=== PATIENT | female | born 1940 | race Caucasian/White ===

== ENCOUNTER 2017-09-25 08:00 | Inpatient (IN) ==
[2017-09-20 17:20] LABS: Blood Urea Nitrogen 16 mg/dl (8-23)
[~2017-09-25 08:00] MED LIST: ACETAMINOPHEN 500 MG TABLET PO SCH; CELECOXIB 200 MG CAPSULE PO SCH; KETOROLAC 30 MG, ROPIVACAINE HCL/PF 49.5 ML, EPINEPHrine 0.5 MG, 0.9 % SODIUM CHLORIDE ... IJ SCH; PREGABALIN 75 MG CAPSULE PO SCH; ceFAZolin 1 GM VIAL IV SCH
[2017-09-25] MEDS ORDERED: GENTAMICIN SULFATE 800 MG/20 ML VIAL IR ONE (10:07)
[2017-09-25] MEDS ORDERED: PHENYLEPHRINE 10 MG/ML VIAL IV ONE (10:30)
[2017-09-25] MEDS ORDERED: KETAMINE 100 MG/ML ML IV ONE (10:30)
[2017-09-25] MEDS ORDERED: TRANEXAMIC ACID 1,000 MG/10 ML VIAL IV ONE (10:30)
[2017-09-25] MEDS ORDERED: ONDANSETRON 4 MG/2 ML VIAL IV ONE (10:30)
[2017-09-25] MEDS ORDERED: PROPOFOL 200 MG/20 ML VIAL IV ONE (10:30)
[2017-09-25] MEDS ORDERED: MIDAZOLAM 2 MG/2 ML VIAL IV ONE (10:30)
[2017-09-25] MEDS ORDERED: LIDOCAINE HCL/PF 100 MG/5 ML SYRINGE IV ONE (10:30)
[2017-09-25] MEDS ORDERED: EPINEPHrine 1 MG/ML AMPUL IJ ONE (10:30)
[2017-09-25] MEDS ORDERED: GLYCOPYRROLATE 0.2 MG/ML VIAL IV ONE (10:30)
[2017-09-25] MEDS ORDERED: ROPIVACAINE HCL/PF 20 ML VIAL IJ ONE (10:30)
[2017-09-25] MEDS ORDERED: METHOCARBAMOL 1,000 MG/10 ML VIAL IV PRN (11:38)
[2017-09-25] MEDS ORDERED: MEPERIDINE 25 MG/ML SYRINGE IV PRN (11:38)
[2017-09-25] MEDS ORDERED: fentaNYL 100 MCG/2 ML VIAL IV PRN (11:38)
[2017-09-25] MEDS ORDERED: BENZOCAINE/MENTHOL 1 LOZENGE PO PRN ×2 (11:38→12:12)
[2017-09-25] MEDS ORDERED: ePHEDrine 50 MG/ML AMPUL IV PRN (11:38)
[2017-09-25] MEDS ORDERED: IPRATROPIUM/ALBUTEROL 3 ML AMPUL.NEB NEB PRN (11:38)
[2017-09-25] MEDS ORDERED: LACTATED RINGERS 1,000 ML IV SCH (11:45)
--- NOTE | 2017-09-25 12:11 | Brief Operative Note ---
Date of procedure: 09/25/17 Pre-op diagnosis: Right knee djd Post-op diagnosis: same Procedure: right tka revision from partial tka Grafts/Implants: Yes Anesthesia: GETA Complications: none Complications Description: 09/25/17 12:11 none Surgeon: Steve Lindsey Demographic Analyst: Paul Pham Estimated blood loss (cc): 50 Tourniquet Time (Minutes): 55 Specimens Removed/Pathology: none sent Condition: stable Disposition: PACU
[2017-09-25] MEDS ORDERED: BISACODYL 10 MG SUPP.RECT PR PRN (12:12)
[2017-09-25] MEDS ORDERED: FLEETS ADULT ENEMA PR PRN (12:12)
[2017-09-25] MEDS ORDERED: POLYETHYLENE GLYCOL 3350 17 GM PACKET PO PRN (12:12)
[2017-09-25] MEDS ORDERED: HYDROmorphone 2 MG/ML SYRINGE IV PRN (12:12)
[2017-09-25] MEDS ORDERED: ACETAMINOPHEN 325 MG TABLET PO PRN (12:12)
[2017-09-25] MEDS ORDERED: ONDANSETRON 4 MG/2 ML VIAL IV PRN (12:12)
[2017-09-25] MEDS ORDERED: TRANEXAMIC ACID 1,000 MG/10 ML VIAL IV SCH (12:12)
--- NOTE | 2017-09-25 12:31 | Operative Note ---
DATE OF OPERATION: 09/25/2017 PREOPERATIVE DIAGNOSIS: Right knee degenerative arthritis. POSTOPERATIVE DIAGNOSIS: Right knee degenerative arthritis. PROCEDURE: Right partial knee converted to a total knee because of patellofemoral wear. SURGEON: Steve Lindsey MD ENGLISH AS A SECOND LANGUAGE INSTRUCTOR: Paul Pham PA-C ANESTHESIA: General LMA anesthesia. COMPLICATIONS: None. TOTAL TOURNIQUET TIME: 55 minutes. DESCRIPTION OF PROCEDURE: The patient was brought to the operating room and put to sleep with general LMA anesthesia. The right leg was sterilely prepped and draped in the usual sterile fashion. A timeout was performed confirming the operative site, both by x-ray and consent form, and initials on the skin. Once these all matched, we then made a midline incision, a mid vastus approach performed. We exsanguinated the leg and inflated the tourniquet to 250 pounds of pressure. We exposed the joint and evaluated the implants. She had a partial medial knee. This was very stable throughout the range of motion. She had quite a bit of wear under the patellofemoral joint laterally. This seemed to be perfectly positioned. At this point, we proceeded with a total knee arthroplasty. The implant was removed medially using the [employer] robot. We registered the 30 points on the femur and tibia and balanced the knee once more. We then brought in the robot, made our distal femoral cut, our chamfer cuts both on the femur. Our tibial cut was then made, removing the remnants of the lateral meniscus, preserving the posterior crucial ligament. We irrigated thoroughly. We then bone grafted medially. Once this was done, we then implanted the size 3 tibial baseplate and size 3 femur with a size 13 poly and a 33 mm patellar button. All components fit very well. Excess cement was removed. We injected the soft tissues making measurements on the robot. This brought us back to 1 degree extension as well as stable in flexion and extension. We irrigated thoroughly, removed any excess cement and closed the mid vastus approach with #2 Stratafix x2 sutures. We closed the skin with 2-0 Vicryl and adhesive closure. The patient tolerated this well. The other portals were closed with 4-0 nylon. RBH:rimma Job ID: [id number] Doc ID: [id number] Steve Lindsey MD
--- NOTE | 2017-09-25 12:46 | XRay Report ---
CLINICAL INFORMATION: Postsurgical follow-up TECHNIQUE: AP and lateral right knee COMPARISON: Previous examination dated 05/19/2017 FINDINGS: Status post revision of right hemiknee arthroplasty. There are now changes of complete right knee arthroplasty. Femoral and tibial components are in anatomic positions. There is postsurgical intra-articular gas. IMPRESSION: Status post right total knee arthroplasty Interpreted and Authenticated by: Rafat Blankenship 09/25/17
[2017-09-25] MEDS: 0.45 % SODIUM CHLORIDE 1,000 ML IV SCH (13:26)
[2017-09-25] MEDS: 0.9 % SODIUM CHLORIDE 10 ML SYRINGE IV SCH ×2 (13:27→20:44)
[2017-09-25] MEDS: metFORMIN 500 MG TABLET PO SCH (16:50)
[2017-09-25] MEDS: oxyCODONE/APAP 5/325MG TABLET PO PRN ×2 (16:51→22:11)
[2017-09-25] MEDS: ceFAZolin 1 GM VIAL IV SCH (18:08)
[2017-09-25] MEDS: KETOROLAC 15 MG/ML VIAL IV SCH (18:10)
[2017-09-25] MEDS: DOCUSATE SODIUM 100 MG CAPSULE PO SCH (20:42)
[2017-09-25] MEDS: METOPROLOL TARTRATE 50 MG TABLET PO SCH (20:42)
[2017-09-25] MEDS: ASPIRIN 325 MG ENTERIC COATED TABLET PO SCH (20:42)
[2017-09-25] MEDS: Budesonide/Formoterol Fumarate [Symbicort 160-4.5 MCG] Inhaler INH SCH (20:50)
[2017-09-25] MEDS ORDERED: TEMAZEPAM 15 MG CAPSULE PO PRN (21:00)
[2017-09-25] MEDS ORDERED: SENNOSIDES 1 TABLET PO SCH (21:00)
[2017-09-25] MEDS ORDERED: ATORVASTATIN 20 MG TABLET PO SCH (21:00)
[2017-09-25] MEDS: MAGNESIUM HYDROXIDE 30 ML ORAL.SUSP PO PRN (22:11)
[2017-09-26] MEDS: KETOROLAC 15 MG/ML VIAL IV SCH ×3 (00:11→12:01)
[2017-09-26] MEDS: 0.45 % SODIUM CHLORIDE 1,000 ML IV SCH (00:12)
[2017-09-26] MEDS: ceFAZolin 1 GM VIAL IV SCH (02:22)
[2017-09-26] MEDS: oxyCODONE/APAP 5/325MG TABLET PO PRN ×3 (04:12→13:41)
[2017-09-26] MEDS: 0.9 % SODIUM CHLORIDE 10 ML SYRINGE IV SCH ×2 (05:36→15:28)
[2017-09-26] MEDS ORDERED: OMEPRAZOLE 20 MG CAPSULE PO SCH (07:30)
[2017-09-26] MEDS: metFORMIN 500 MG TABLET PO SCH (07:34)
--- NOTE | 2017-09-26 07:36 | Orthopedic Progress Note ---
Subjective Patient information: Note initiated : 09/26/17 at 7:36 am Service Date, if different from initiated Date: [] Patient: Marlena Muñoz 77 y/o F admitted on 09/25/17 for Right Partial Medial Franki Knee Revision (Poss . Chief Complaint: [Pt is stable this morning on post operative day 1 without any significant concerns or complaints. Patients vital signs have remained stable. Patients dressing is dry and exhibits a grossly intact neurovascular and neuromotor exam. Patients 10 point ROS is otherwise negative. ] Objective Vital signs: Vital Signs Temp Pulse Resp BP BP Pulse Ox 09/26/17 07:30 97.7 F 16 97/60 90 09/26/17 04:00 97.9 F 63 16 105/63 91 09/25/17 23:38 97.9 F 73 16 120/65 91 09/25/17 23:37 91 09/25/17 20:00 97.5 F 73 16 131/76 95 09/25/17 16:12 97 09/25/17 16:06 97.3 F 18 112/57 97 09/25/17 15:05 96.6 F L 18 118/62 97 09/25/17 14:35 107/58 95 09/25/17 14:05 106/57 97 09/25/17 13:50 122/51 97 09/25/17 13:35 110/64 97 09/25/17 13:20 96.9 F L 12 111/63 97 09/25/17 13:08 97.4 F 76 14 135/57 100 09/25/17 13:00 76 12 131/58 100 09/25/17 12:55 73 12 142/63 100 09/25/17 12:50 84 18 141/69 100 09/25/17 12:45 81 12 149/67 100 09/25/17 12:40 78 12 157/71 100 09/25/17 12:35 77 12 153/68 100 09/25/17 12:30 77 12 127/65 100 09/25/17 12:25 66 11 L 127/64 99 09/25/17 12:20 96.7 F L 68 11 L 99/53 96 09/25/17 08:00 97.4 F 20 134/76 98 Intake and Output 09/25/17 09/26/17 09/26/17 21:59 05:59 13:59 Intake Total 920 / 920 2125 / 2125 Output Total 750 / 750 725 / 725 Balance 170 / 170 1400 / 1400 Intake: IV 1000 / 1000 Sodium Chloride 0.45% 1,000 ml 1000 / 1000 @ 100 mls/hr IV .Q10H [place] Rx#: [id number] Oral 920 / 920 1125 / 1125 Output: Urine Catheter Amount 600 / 600 550 / 550 Void Amount 150 / 150 175 / 175 Other: Meal Dinner Percent of Meal Consumed 100% # Voids 1 1 Weight 170 lb Intake & Output: Intake & Output 09/25/17 09/26/17 09/26/17 21:59 05:59 13:59 Intake Total 920 / 920 2125 / 2125 Output Total 750 / 750 725 / 725 Balance 170 / 170 1400 / 1400 Weight 170 lb Intake: IV 1000 / 1000 Sodium Chloride 0.45% 1,000 ml 1000 / 1000 @ 100 mls/hr IV .Q10H [place] Rx#: [id number] Oral 920 / 920 1125 / 1125 Output: Urine Catheter Amount 600 / 600 550 / 550 Void Amount 150 / 150 175 / 175 Other: Meal Dinner Percent of Meal Consumed 100% # Voids 1 1 Incision: Yes healing Incision clean and dry: Yes Dressing: Yes clean, Yes dry Weight bearing status: full Neurological exam IM: Yes motor sensory intact, Yes neurovascular intact Extremities exam IM: Yes Foot pink and warm, Yes neurovascular intact - Labs CBC & BMP: 09/26/17 05:18 09/20/17 14:42 Labs: Orthopedic Labs 09/20/17 14:43 PT 12.4 INR 0.9 APTT 29 09/26/17 05:18 Hct 32.2 L
--- NOTE | 2017-09-26 07:40 | Discharge Summary ---
Ortho Discharge - TKA - Patient Instructions Diet: Regular Diet Activity: activity as tolerated, weight bearing as tolerated Total Knee Protocol: For Total Knee: Start ROM ALBARO with stationary bike or rocking chair. Work on gaining full extension of knee. Posterior dislocation precautions provided. Hip abductor strengthening and gait training instructions provided. Apply Cryocuff as instructed. Dressing Care: May shower in 2 days Patient Education: Unicompartmental Knee Replacement (DC) Additional Instructions: Do the exercises at home that physical therapy gave you [facility] [phone] APPOINTMENT: 09/28/17 @ 2: 45pm. Your orders have been faxed to them. Take your photo ID, insurance cards, and current medication list with you to your first physical therapy appointment. Wear comfortable clothing for your physical therapy. Consider taking pain medication 45 minutes prior to your appointment. Weight bearing as tolerated. Take your prescription to belt picker any medication. If you have the Aquacel Ag dressing, leave in place for 7 days then remove. If dressing becomes soiled (turns black), remove and use gauze 4x4 dressing and silvasorb ointment and change daily. Keep incision clean and dry. If you have Dermabond (a dressing with a mesh-like appearance), leave open to air. You may start showering on post op day #2. The Dermabond dressing can get wet, do not scrub dressing. Pat dry. To avoid constipation while taking any narcotic pain medication, take an over the counter stool softener/laxative. Use your Cryocuff or ice packs as directed, on for 20 minutes at a time throughout the day. This and elevation will help with pain and swelling. Call your physician for fevers above 100.5 or pain not controlled by medication. Your prescriptions are with your discharge information. Some medications were electronically transmitted to your pharmacy of choice. CPM for home use - Follow Up Plan Follow Up Appointments: Paul Pham PA-C [Physician Alarm Installation Technician] - 10/10/17 10:40 am Disposition: Home, Self-Care Prognosis: Good Rehab Potential: Good I certify that the patient requires SNF services: No Overall status at discharge: patient is progressing back to baseline - Orders For Discharge Prescriptions: Aspirin [Ecotrin] 325 mg PO BID #60 tab.ec Docusate Sodium [Colace] 100 mg PO BID #60 cap oxyCODONE/APAP [Percocet 5-325 mg] 1 - 2 tab PO Q4HP PRN #75 tab PRN Reason: Pain
[2017-09-26] MEDS ORDERED: POTASSIUM CHLORIDE 10 MEQ TABLET PO SCH (08:00)
[2017-09-26] MEDS: DOCUSATE SODIUM 100 MG CAPSULE PO SCH (08:11)
[2017-09-26] MEDS: ASPIRIN 325 MG ENTERIC COATED TABLET PO SCH (08:12)
[2017-09-26] MEDS: Budesonide/Formoterol Fumarate [Symbicort 160-4.5 MCG] Inhaler INH SCH (08:12)
[2017-09-26] MEDS: METOPROLOL TARTRATE 50 MG TABLET PO SCH (08:12)
[2017-09-26] MEDS ORDERED: VITAMIN D3 1,000 UNIT TABLET PO SCH (09:00)
[2017-09-26] MEDS ORDERED: HYDROCHLOROTHIAZIDE 25 MG TABLET PO SCH (09:00)
[2017-09-26] MEDS ORDERED: FEXOFENADINE 180 MG TABLET PO SCH (09:00)
[2017-09-26] MEDS ORDERED: FISH OIL 1,000 MG CAPSULE PO SCH (09:00)
[2017-09-26] MEDS ORDERED: CALCIUM CARBONATE 500 MG TAB.CHEW CHEWED SCH (09:00)
[2017-09-26] MEDS ORDERED: UBIDECARENONE 30 MG PO SCH (09:00)
[2017-09-26] MEDS ORDERED: BIOTIN 5 MG PO SCH (09:00)
[2017-09-26] MEDS ORDERED: MAGNESIUM OXIDE 400 MG TABLET PO SCH (09:00)
[2017-09-26] MEDS ORDERED: amLODIPine 10 MG TABLET PO SCH (09:00)
[2017-09-26] MEDS ORDERED: MONTELUKAST 10 MG TABLET PO SCH (09:00)
[2017-09-26] MEDS: MAGNESIUM HYDROXIDE 30 ML ORAL.SUSP PO PRN (10:35)
== END 2017-09-26 16:17 | disposition home or self-care (01) | DRG 468 ==
LOC: MEDSUR 08:00
PROVIDERS: ADMIT Orthopaedic Surgery; ATTEND Orthopaedic Surgery

== ENCOUNTER 2017-11-11 20:23 | Inpatient (IN) ==
--- NOTE | 2017-11-11 20:58 | Emergency Department Note ---
SOB HPI - General Chief Complaint: Shortness of Breath/Dyspnea Stated Complaint: trouble taking good deep breathe Time Seen by Provider: 11/11/17 20:36 Mode of arrival: ambulatory - History of Present Illness 77-year-old female who lives alone arrives by private vehicle. Here with her daughter secondary to shortness of breath that she's had for the last week. She also describes diarrhea which has been improving, she had one stool today versus a few days ago she was still having 5 or 6. Apparently she was low on her potassium and the called in some potassium for her had stool cultures done in the office and apparently these were okay, she tells me she takes hydrochlorothiazide that she's been cutting her dose in half and today she notes that her heart rate was fast, she was feeling short of breath also walking a short distance. History of COPD but she has not been wheezy, she not coughing she did have some chest pain 3 days ago which was left-sided and lasts about 20 minutes. MD Complaint: shortness of breath - Related Data Home Medications Medication Instructions Recorded Confirmed omega-3 fatty acids 1,000 mg 1,000 mg PO DAILY cap 05/01/15 11/11/17 capsule biotin 5 mg capsule 5 mg PO QDAY 09/13/16 11/11/17 fexofenadine 180 mg tablet 180 mg PO QDAY 09/13/16 11/11/17 Omeprazole [Prilosec] 20 mg PO ACB 05/17/17 11/11/17 Ubidecarenone [Coq-10] 30 mg PO DAILY 05/17/17 11/11/17 calcium carbonate 400 mg calcium 400 mg PO QDAY tab 09/15/17 11/11/17 (1,000 mg) chewable tablet cholecalciferol (vitamin D3) 2,000 2,000 unit PO QDAY cap 09/15/17 11/11/17 unit capsule magnesium 250 mg tablet 500 mg PO QDAY tab 09/15/17 11/11/17 Previous Rx's Medication Instructions Recorded amlodipine 10 mg tablet 10 mg PO QDAY 90 Days #90 tab 07/18/17 atorvastatin 20 mg tablet 20 mg PO HS 90 Days #90 tab 07/18/17 budesonide-formoterol HFA 160 2 inh INHALATION BID 90 Days #30.6 07/18/17 mcg-4.5 mcg/actuation aerosol g inhaler montelukast 10 mg tablet 10 mg PO QDAY 90 Days #90 tab 07/18/17 metoprolol tartrate 50 mg tablet 50 mg PO BID #180 tab 09/15/17 Aspirin [Ecotrin] 325 mg PO BID #60 tab.ec 09/26/17 Docusate Sodium [Colace] 100 mg PO BID #60 cap 09/26/17 metformin 500 mg tablet 500 mg PO BID #180 tab 09/26/17 oxyCODONE/APAP [Percocet 5-325 mg] 1 - 2 tab PO Q4HP PRN #75 tab 09/26/17 hydrochlorothiazide 50 mg tablet 25 mg PO QDAY 90 Days #45 tab 11/10/17 potassium chloride ER 10 mEq 10 meq PO BID #30 tab 11/10/17 tablet,extended release Allergies Allergy/AdvReac Type Severity Reaction Status Date / Time morphine Allergy Severe Difficulty Verified 11/09/17 14:14 Breathing egg AdvReac Mild Rash Verified 11/09/17 14:14 Review of Systems All systems ED: reviewed and negative except as stated. Constitutional: Denies: fever, chills Eyes: Denies: eye pain ENT ED: Denies: ear pain Cardiovascular: Reports: chest pain, palpitations, dyspnea on exertion Respiratory: Reports: cough Gastrointestinal: Reports: abdominal pain, nausea, diarrhea. Denies: vomiting Genitourinary: Denies: dysuria Musculoskeletal: Denies: back pain Endocrine: Reports: fatigue Hematological/Lymphatic: Denies: easy bleeding Allergic/Immunologic: Denies: facial swelling Past Medical History - Past Medical History Source: old records reviewed, obtained from family, nursing notes reviewed Medical history: Reports: COPD, diabetes, hyperlipidemia, other (pancreatitis) Surgical history ED: Reports: cholecystectomy - Social History smoking status: Former smoker Alcohol use: Reports: Rarely Physical Exam Limitations: no limitations General appearance: alert Head: atraumatic, normocephalic Eye: Present: normal appearance, PERRL, EOMI, visual cárdenas intact. Absent: scleral icterus, conjunctival injection, periorbital swelling ENT: normal exam, normal oropharynx, mucous membranes moist, TM's normal bilaterally Neck: Present: normal inspection, full ROM Chest: Present: normal inspection, symmetric chest wall rise Respiratory: Present: normal lung sounds bilaterally. Absent: wheezes Cardiovascular: Present: regular rate, normal rhythm, normal heart sounds Abdominal: Present: soft, tenderness, normal bowel sounds. Absent: distention, guarding, rebound Abdominal tenderness: Present: epigastrium, mild Extremities: Present: normal inspection, full ROM, normal capillary refill. Absent: tenderness, pedal edema Back: Present: normal inspection. Absent: CVA tenderness (R), CVA tenderness (L ), vertebral tenderness Neurological: Present: alert, oriented X3, CN II-XII intact Psychiatric: Present: normal affect, normal mood Skin: Present: warm, dry, intact. Absent: rash Course - Reevaluation(s) Reevaluation #1: Rectal exam was negative for blood, brown stool in the rectal vault which was soft. No rectal masses. Normal sphincter tone. We did start her on Protonix, she did have a 2. hemoglobin drop, also her potassium was 2.5. She was started on potassium. Heart rate did improve with IV fluids. Vital Signs Temperature 98.4 F 11/11/17 20:24 Pulse Rate 100 H 11/11/17 20:24 Respiratory Rate 17 11/11/17 20:24 Blood Pressure 123/81 11/11/17 20:24 Pulse Oximetry (%) 94 11/11/17 20:24 Temperature 98.4 F 11/11/17 20:24 Pulse Rate 111 H 11/11/17 22:01 Respiratory Rate 23 H 11/11/17 22:01 Blood Pressure 106/70 11/11/17 22:01 Pulse Oximetry (%) 95 11/11/17 22:01 Shortness of Breath/Dyspnea - [facility] Narrative Medical decision making narrative: final diagnosis is hypokalemia. Discussed with Dr. Black - Lab Data Result diagrams: 11/11/17 21:11 11/11/17 21:11 Lab Results 11/11/17 11/11/17 11/11/17 Range/Units 21:11 21:11 21:11 WBC 9.0 (4.5-11.0) K/mcL RBC 4.03 (4.00-5.20) M/mcL Hgb 11.2 L (12.0-15.0) g/dL Hct 33.5 L (36.0-48.0) % MCV 83.1 (80.0-100.0) fL MCH 27.7 (26.0-34.0) pg MCHC 33.3 (31.0-36.0) g/dL RDW 13.1 (11.5-14.5) % Plt Count 499 H (140-440) K/mcL MPV 7.7 (7.4-10.4) fL Gran % 63.4 (38.0-78.0) % Lymph % (Auto) 13.7 L (15.5-49.0) % [place] % (Auto) 15.2 H (1.0-12.0) % Eos % (Auto) 6.9 (0.0-7.0) % Baso % (Auto) 0.8 (0.0-2.0) % Gran # 5.7 (1.8-8.0) K/mcL Lymph # (Auto) 1.2 L (1.5-4.8) K/mcL [place] # (Auto) 1.4 H (0.1-0.9) K/mcL Eos # (Auto) 0.6 (0.0-0.7) K/mcL Baso # (Auto) 0.1 (0.0-0.3) K/mcL D-Dimer 0.68 H (0.00-0.40) ug/ml Sodium 123 L (133-145) mmol/L Potassium 2.5 L* (3.3-5.1) mmol/L Chloride 80 L (96-108) mmol/L Carbon Dioxide 25 (22-30) mmol/L Anion Gap 18.0 H (8-16) BUN 8 (8-23) mg/dl Creatinine 0.9 (0.6-1.1) mg/dl GFR Calculation 62 Glucose 125 H (70-105) mg/dL Calcium 9.7 (8.6-10.4) mg/dl Total Bilirubin 0.4 (0.0-1.0) mg/dL AST 14 (0-37) U/l ALT 12 (0-40) U/l Alkaline Phosphatase 71 (39-117) U/L Troponin T (0-0.03) ng/ml NT-Pro-B Natriuret Pep 734.0 H (0-450) pg/ml Total Protein 6.9 (5.9-8.4) gm/dL Albumin 3.9 (3.2-5.2) gm/dL Globulin 3.0 (2.2-3.7) gm/dL Albumin/Globulin Ratio 1.3 (1.0-2.3) 11/11/17 Range/Units 21:11 WBC (4.5-11.0) K/mcL RBC (4.00-5.20) M/mcL Hgb (12.0-15.0) g/dL Hct (36.0-48.0) % MCV (80.0-100.0) fL MCH (26.0-34.0) pg MCHC (31.0-36.0) g/dL RDW (11.5-14.5) % Plt Count (140-440) K/mcL MPV (7.4-10.4) fL Gran % (38.0-78.0) % Lymph % (Auto) (15.5-49.0) % [place] % (Auto) (1.0-12.0) % Eos % (Auto) (0.0-7.0) % Baso % (Auto) (0.0-2.0) % Gran # (1.8-8.0) K/mcL Lymph # (Auto) (1.5-4.8) K/mcL [place] # (Auto) (0.1-0.9) K/mcL Eos # (Auto) (0.0-0.7) K/mcL Baso # (Auto) (0.0-0.3) K/mcL D-Dimer (0.00-0.40) ug/ml Sodium (133-145) mmol/L Potassium (3.3-5.1) mmol/L Chloride (96-108) mmol/L Carbon Dioxide (22-30) mmol/L Anion Gap (8-16) BUN (8-23) mg/dl Creatinine (0.6-1.1) mg/dl GFR Calculation Glucose (70-105) mg/dL Calcium (8.6-10.4) mg/dl Total Bilirubin (0.0-1.0) mg/dL AST (0-37) U/l ALT (0-40) U/l Alkaline Phosphatase (39-117) U/L Troponin T < 0.01 (0-0.03) ng/ml NT-Pro-B Natriuret Pep (0-450) pg/ml Total Protein (5.9-8.4) gm/dL Albumin (3.2-5.2) gm/dL Globulin (2.2-3.7) gm/dL Albumin/Globulin Ratio (1.0-2.3) Disposition Pt seen by FINANCE ADMIN/PA only: No Clinical Impression: Hypokalemia Disposition: Xfer As Outpt/Obs ([facility] Condition: Fair Referrals: Maldonado Casey MD [Primary Care Provider] -
[2017-11-11] MEDS ORDERED: LACTATED RINGERS 1,000 ML IV ONE (21:00)
[2017-11-11 21:52] LABS: Basophils # (Auto) 0.1 K/mcL (0.0-0.3); Basophils % (Auto) 0.8 % (0.0-2.0); Eosinophils # (Auto) 0.6 K/mcL (0.0-0.7); Eosinophils % (Auto) 6.9 % (0.0-7.0); Granulocytes % (Auto) 63.4 % (38.0-78.0); Lymphocytes # (Auto) 1.2 K/mcL (1.5-4.8); Lymphocytes % (Auto) 13.7 % (15.5-49.0); Mean Cell Volume 83.1 fL (80.0-100.0); Mean Corpuscular HGB Conc 33.3 g/dL (31.0-36.0); Mean Corpuscular Hemoglobin 27.7 pg (26.0-34.0); Monocytes # (Auto) 1.4 K/mcL (0.1-0.9); Monocytes % (Auto) 15.2 % (1.0-12.0); Platelet Count 499 K/mcL (140-440); RBC 4.03 M/mcL (4.00-5.20); Red Cell Distribution Width 13.1 % (11.5-14.5)
[2017-11-11] MEDS ORDERED: PANTOPRAZOLE 40 MG VIAL IV ONE (22:15)
[2017-11-11 22:25] LABS: ALT/SGPT 12 U/l (0-40); Albumin 3.9 gm/dL (3.2-5.2); Albumin/Globulin Ratio 1.3 (1.0-2.3); Alkaline Phosphatase 71 U/L (39-117); Blood Urea Nitrogen 8 mg/dl (8-23)
[2017-11-11] MEDS ORDERED: POTASSIUM CHLORIDE 20 MEQ in DEXTROSE 5% IN WATER 250 ML IV ONE (22:37)
[2017-11-11] MEDS ORDERED: POTASSIUM CHLORIDE 40 MEQ in DEXTROSE 5% IN WATER 500 ML IV ONE ×2 (22:43→23:11)
[2017-11-11] MEDS ORDERED: MAGNESIUM SULFATE 2 GM/50 ML BAG IV ONE ×3 (22:43→23:37)
[2017-11-11] MEDS ORDERED: ONDANSETRON 4 MG/2 ML VIAL IV PRN (23:11)
[2017-11-11] MEDS ORDERED: NALOXONE HCL 0.4 MG/ML VIAL IV PRN (23:11)
[2017-11-11] MEDS ORDERED: LACTATED RINGERS 1,000 ML IV SCH (23:11)
[2017-11-11] MEDS ORDERED: HYDROcodone/APAP 5/325MG TABLET PO PRN (23:11)
[2017-11-11 23:19] LABS: Magnesium 1.1 mg/dL (1.6-2.5)
[2017-11-11 23:20] LABS: Uric Acid 6.7 mg/dL (2.5-8.0)
[2017-11-11] MEDS ORDERED: POTASSIUM CHLORIDE 20 MEQ/10 ML VIAL IV ONE (23:37)
[2017-11-11 23:38] LABS: Appearance,Urine CLEAR; Bacteria,Urine 0 /hpf (0); Bilirubin,Urine NEG (NEG); Color,Urine YELLOW; Glucose,Urine (UA) NEGATIVE (NEG); Leukocyte Esterase,Urine 75 /uL (NEG); Mucus,Urine FEW /hpf (0); Nitrate,Urine NEG (NEG); Protein,Urine NEG (NEG); Specific Gravity,Urine 1.006 (1.000-1.035); Urine Blood NEG mg/dL (<0.03); Urine RBC < 1 /hpf (0-1); Urine Squamous Epithelial Cell < 1 /hpf (0-4); Urine WBC 13 /hpf (0-4); Urobilinogen,Urine NEG (NEG)
--- NOTE | 2017-11-12 00:02 | Internal Med History&Physical ---
Medical - H&P: HPI Patient information: Note initiated : 11/11/17 at 11:59 pm Service Date, if different from initiated Date: [] Patient: Marlena Muñoz a 77 y/o F admitted on 11/11/17 for trouble taking good deep breathe. Chief Complaint: [] History of present illness: Ms. Muñoz is a 77 year old Female, presents to the hospital with dairrhea going on for over a week, the patient notes she has been having watery diarrhea x 7-8 days, the patient diarrhea is watery, some mucous secretions, no blood, she has had very poor appetite during this episode. She note she has lost around 9 lbs during this time. The patient had been recently seen by her PCP and workup was initiated, labs ordered. Stool studies have been eng, including cdiff, pt did have hyponatera Na 128, and K of 2.8, PCP/ [employer] [facility] consultant provider advised to start taking potassium supplements which she had been taking. The patient reports that over 1 day her diarrhea has now resolved. But she is still feeling very weak and tired, she is not able to ambulate well without being short of breath and feeling palpitations, her mouth is parched and she has not regained her appetitie back up again. She also reports left upper quadrant, epigastric pain burning type over last day or two. The patient therefore presented to the ER for further management. In the ER her labs showed normal wbc, hb low, drop of 2 gms since last check 2 days ago, her Na had dropped to 123, K was 2.5, Cl 80, Patient EKG showed signifciant PAC, She was clinically dehydarted, She was therefore presented for admission. FOB done in the ER is negative for occult blood The patient denies any fever, no headaches, some dizziness, no d ifficulity in swallowing, no hearing issues, shortness of breath/ fatigue on abulation, no chest pain, no abdominal pain, but does have sorness, she has some nausea, no vomiting, diarrhea is now resolved, no joint swelling, skin rashes, no depression or anxiety. The patients recent lab work shows normal tsh. All systems: reviewed and no additional remarkable complaints except as stated ( as per HPI) Medical - H&P: PMH Medical history: Medical History COPD exacerbation (Acute) Urinary tract infection (Acute) Hypokalemia (Acute) Visual disturbance (Acute 04/21/15) Urticaria (Acute) Weakness of right upper extremity (Acute 04/21/15) Pain, joint, multiple sites (Acute 04/21/15) Hypertension, essential (Acute) Hyperlipidemia (Acute) Headache (Acute 04/21/15) Type 2 diabetes mellitus (Acute) Chronic obstructive pulmonary disease (Acute) Seasonal allergies (Acute) Surgical history: Past Surgical History History of sphincterotomy of sphincter of Oddi (Acute) History of ovarian cystectomy (Acute) History of oophorectomy (Acute) History of eye surgery (Acute) History of esophagogastroduodenoscopy (Acute) History of cholecystectomy (Acute) Pertinent family history: Family History Brother Diabetes mellitus Hyperlipidemia Essential hypertension Sister Diabetes mellitus Hyperlipidemia Cerebrovascular accident Father Cardiac disease Essential hypertension Cerebrovascular accident Mother Hyperlipidemia Essential hypertension Medical - H&P: Meds Home Medications Medication Instructions Recorded Confirmed Type omega-3 fatty acids 1,000 mg 1,000 mg PO DAILY cap 05/01/15 11/11/17 History capsule biotin 5 mg capsule 5 mg PO QDAY 09/13/16 11/11/17 History fexofenadine 180 mg tablet 180 mg PO QDAY 09/13/16 11/11/17 History Omeprazole [Prilosec] 20 mg PO ACB 05/17/17 11/11/17 History Ubidecarenone [Coq-10] 30 mg PO DAILY 05/17/17 11/11/17 History amlodipine 10 mg tablet 10 mg PO QDAY 90 Days #90 tab 07/18/17 11/11/17 Rx atorvastatin 20 mg tablet 20 mg PO HS 90 Days #90 tab 07/18/17 11/11/17 Rx budesonide-formoterol HFA 160 2 inh INHALATION BID 90 Days #30.6 07/18/17 Rx mcg-4.5 mcg/actuation aerosol g inhaler montelukast 10 mg tablet 10 mg PO QDAY 90 Days #90 tab 07/18/17 11/11/17 Rx calcium carbonate 400 mg calcium 400 mg PO QDAY tab 09/15/17 11/11/17 History (1,000 mg) chewable tablet cholecalciferol (vitamin D3) 2,000 2,000 unit PO QDAY cap 09/15/17 11/11/17 History unit capsule magnesium 250 mg tablet 500 mg PO QDAY tab 09/15/17 11/11/17 History metoprolol tartrate 50 mg tablet 50 mg PO BID #180 tab 09/15/17 11/11/17 Rx Aspirin [Ecotrin] 325 mg PO BID #60 tab.ec 09/26/17 11/11/17 Rx Docusate Sodium [Colace] 100 mg PO BID #60 cap 09/26/17 11/11/17 Rx metformin 500 mg tablet 500 mg PO BID #180 tab 09/26/17 11/11/17 Rx oxyCODONE/APAP [Percocet 5-325 mg] 1 - 2 tab PO Q4HP PRN #75 tab 09/26/17 Rx hydrochlorothiazide 50 mg tablet 25 mg PO QDAY 90 Days #45 tab 11/10/17 Rx potassium chloride ER 10 mEq 10 meq PO BID #30 tab 11/10/17 11/11/17 Rx tablet,extended release Allergies Allergy/AdvReac Type Severity Reaction Status Date / Time morphine Allergy Severe Difficulty Verified 11/09/17 14:14 Breathing egg AdvReac Mild Rash Verified 11/09/17 14:14 Medical - H&P: Exam - Constitutional Vitals: Temp Pulse Resp BP Pulse Ox 98.4 F 109 H 16 123/70 93 11/11/17 20:24 11/11/17 23:04 11/11/17 23:04 11/11/17 23:01 11/11/17 23:04 Exam: GENERAL: The patient is a well-developed, well-nourished in no apparent distress. Is alert and oriented x3. VITAL SIGNS: Reviewed and as noted elsewhere. HEENT: Head is normocephalic and atraumatic. Extraocular muscles are intact. Pupils are equal, round, and reactive to light. Nares appeared normal. Mouth appears any without lesions. Mucous membranes are dry, NECK: Normal to inspection, Supple, No lymphadenopathy or thyromegaly. LUNGS: Air entry equal on both sides, no wheezing, crackles or rhonchi noted. No accessory muscles of respiration HEART: tachycardic rate and rhythm irregular, S1 and S2 heard, no Gallop, S3 or Rub Noted, No Gross murmur heard. ABDOMEN: Soft, generalized sorness present, and nondistended. Positive bowel sounds. No hepatosplenomegaly was noted. EXTREMITIES: No cyanosis, clubbing, rash, lesions or edema. NEUROLOGIC: Cranial nerves II through XII are grossly intact. Motor and Sensory System Grossly Intact PSYCHIATRIC: Normal affect, Normal Mood. Appropriate Behavior. SKIN: Dry skin, No ulceration or wounds noted, No jaundice, No rash noted. Medical - H&P: Reslt - Labs CBC & Chem 7: 11/11/17 21:11 11/11/17 21:11 Labs: Short CBC 11/11/17 Range/Units 21:11 WBC 9.0 (4.5-11.0) K/mcL Hgb 11.2 L (12.0-15.0) g/dL Hct 33.5 L (36.0-48.0) % Plt Count 499 H (140-440) K/mcL BMP 11/11/17 21:11 Sodium 123 L Potassium 2.5 L* Chloride 80 L Carbon Dioxide 25 BUN 8 Creatinine 0.9 Glucose 125 H Calcium 9.7 Cardiac Enzymes 11/11/17 Range/Units 21:11 Troponin T < 0.01 (0-0.03) ng/ml Liver Function 11/11/17 Range/Units 21:11 Total Bilirubin 0.4 (0.0-1.0) mg/dL AST 14 (0-37) U/l ALT 12 (0-40) U/l Alkaline Phosphatase 71 (39-117) U/L Albumin 3.9 (3.2-5.2) gm/dL Urine 11/11/17 Range/Units 22:42 Urine Color Yellow Urine Appearance Clear Urine pH 7.0 (5.0-9.0) Ur Specific [place] 1.006 (1.000-1.035) Urine Protein Neg (NEG) mg/dL Urine Glucose (UA) Negative (NEG) mg/dL Medical - H&P: A/P - Narrative A/P Narrative: A/P Hypovolumic Hyponatremia Chronic: IV fluids, 1L lactate ringers given in ER, recheck sodium, and start on LR at 50cc/hr, adjust fluids to manage sodium closely, check urine electrolytes, serum osm urine osm, cortisol levl. LIkely due to severe diarrhea and poor oral intake. Urine studies may be confounded by use of diuretic. Acute hypokalemia: K 2.5, IV 60 Irasema qordered, reassess in AM, this is due to diarrhea and use of high dose hctz, monitor closely, pt on tele. Hypomagnesemia: Mg is 1.1, replace, IV today, and reassess,she is on chr replacement at home. May have exacerbated her hypokalemia. HTN, Hold bp meds for now, resume in AM once bp is stable DM sliding scale insulin, hold metformin. UTI: UA is abnl, she has had pseudomonas in the past, will await cultures, start on IV cefepime in the interim. COPD, duonebs q6sch, no wheezing on exam, resume home meds / symbicort dVT hep sq Diet carb consistent Full code Social History - Tobacco smoking status: Former smoker - Alcohol alcohol intake frequency: a few times a month - Substance use substance use type: does not use
[2017-11-12] MEDS ORDERED: DEXTROSE 50% 50 ML VIAL IV PRN (00:08)
[2017-11-12] MEDS ORDERED: DEXTROSE 31 GM ORAL.SUSP PO PRN (00:08)
[2017-11-12 01:46] LABS: Blood Urea Nitrogen 7 mg/dl (8-23)
[2017-11-12] MEDS ORDERED: DEXTROSE 5%-1/2NS 1,000 ML IV SCH (02:00)
[2017-11-12] MEDS: IPRATROPIUM/ALBUTEROL 3 ML AMPUL.NEB NEB SCH ×4 (02:07→19:04)
[2017-11-12 05:37] LABS: Basophils # (Auto) 0 K/mcL (0.0-0.3); Basophils % (Auto) 0.6 % (0.0-2.0); Eosinophils # (Auto) 0.8 K/mcL (0.0-0.7); Eosinophils % (Auto) 9.5 % (0.0-7.0); Granulocytes % (Auto) 57.2 % (38.0-78.0); Lymphocytes # (Auto) 1.7 K/mcL (1.5-4.8); Lymphocytes % (Auto) 20.8 % (15.5-49.0); Mean Cell Volume 85.3 fL (80.0-100.0); Mean Corpuscular HGB Conc 33.4 g/dL (31.0-36.0); Mean Corpuscular Hemoglobin 28.5 pg (26.0-34.0); Monocytes % (Auto) 11.9 % (1.0-12.0); Platelet Count 466 K/mcL (140-440); RBC 4.09 M/mcL (4.00-5.20)
[2017-11-12 05:58] LABS: ALT/SGPT 12 U/l (0-40); Albumin 3.8 gm/dL (3.2-5.2); Albumin/Globulin Ratio 1.2 (1.0-2.3); Alkaline Phosphatase 73 U/L (39-117); Bilirubin,Direct < 0.2 mg/dL (0.0-0.3); Blood Urea Nitrogen 7 mg/dl (8-23); Gamma Glutamyl Transpeptidase 37 U/L (5-36); Magnesium 2.1 mg/dL (1.6-2.5); Uric Acid 5.9 mg/dL (2.5-8.0)
[2017-11-12] MEDS ORDERED: POTASSIUM CHLORIDE 40 MEQ in DEXTROSE 5% IN WATER 500 ML IV ONE ×2 (07:09→07:30)
--- NOTE | 2017-11-12 07:44 | XRay Report ---
CLINICAL INFORMATION: Dyspnea COMPARISON: 08/02/2017 FINDINGS: Heart is at the upper limits normal in size. Mediastinum and pulmonary vessels are unremarkable. Lungs volumes are elevated compatible with COPD. No infiltrates, nodules or new pulmonary abnormalities. No effusions. Bones and soft tissues are normal IMPRESSION: Stable COPD changes Moderate calcific atherosclerotic plaque seen in both carotid bifurcations. Suggest correlation with auscultation for bruit and carotid Doppler study to evaluate for stenosis Interpreted and Authenticated by: Rafat Morales 11/12/17
[2017-11-12] MEDS: OMEPRAZOLE 20 MG CAPSULE PO SCH (07:47)
[2017-11-12] MEDS: INSULIN LISPRO 1 UNIT/0.01 ML UNIT SQ SCH ×4 (07:51→21:27)
[2017-11-12] MEDS: ACETAMINOPHEN 325 MG TABLET PO PRN ×2 (07:55→20:29)
[2017-11-12] MEDS: HEPARIN 5,000 UNIT/ML VIAL SQ SCH ×2 (07:55→21:26)
[2017-11-12] MEDS: MAGNESIUM OXIDE 400 MG TABLET PO SCH (07:56)
[2017-11-12] MEDS: NEUTRA PHOS 1 PACKET PO SCH ×2 (07:56→21:26)
[2017-11-12] MEDS: MONTELUKAST 10 MG TABLET PO SCH (07:56)
[2017-11-12 08:49] LABS: Blood Urea Nitrogen 6 mg/dl (8-23)
[2017-11-12] MEDS: Budesonide/Formoterol Fumarate [Symbicort] 160-4.5 mcg Inhaler INH SCH ×2 (09:01→21:27)
--- NOTE | 2017-11-12 11:44 | Internal Med Progress Note ---
Medical - PN: Subj Patient information: Note initiated : 11/12/17 at 11:42 am Service Date, if different from initiated Date: [] Patient: Marlena Muñoz a 77 y/o F admitted on 11/11/17 for trouble taking good deep breathe. Chief Complaint: [] Interval history: Ms. Muñoz is a 77 year old Female, presents to the hospital with dairrhea going on for over a week, the patient notes she has been having watery diarrhea x 7-8 days, the patient diarrhea is watery, some mucous secretions, no blood, she has had very poor appetite during this episode. She note she has lost around 9 lbs during this time. The patient had been recently seen by her PCP and workup was initiated, labs ordered. Stool studies have been eng, including cdiff, pt did have hyponatera Na 128, and K of 2.8, PCP/ [employer] consultant provider advised to start taking potassium supplements which she had been taking. The patient reports that over 1 day her diarrhea has now resolved. But she is still feeling very weak and tired, she is not able to ambulate well without being short of breath and feeling palpitations, her mouth is parched and she has not regained her appetitie back up again. She also reports left upper quadrant, epigastric pain burning type over last day or two. The patient therefore presented to the ER for further management. In the ER her labs showed normal wbc, hb low, drop of 2 gms since last check 2 days ago, her Na had dropped to 123, K was 2.5, Cl 80, Patient EKG showed signifciant PAC, She was clinically dehydarted, She was therefore presented for admission. FOB done in the ER is negative for occult blood The patient denies any fever, no headaches, some dizziness, no difficulity in swallowing, no hearing issues, shortness of breath/ fatigue on abulation, no chest pain, no abdominal pain, but does have sorness, she has some nausea, no vomiting, diarrhea is now resolved, no joint swelling, skin rashes, no depression or anxiety. The patients recent lab work shows normal tsh. Nov 12 Patient seen examined, no acute overnight issues, patient feeling better this AM , Her NA is 130, she feels better. Goal correction would be 10-12meq in 24 hrs, I would try to keep her in this range today, on d5. 0.45 ns, she repoted recurrence of loose stools today will get CT Abdomen and pelvis with oral and IV contrast. conside GI eval if this persists for colonoscopy. Pertinent ROS: Denies headache, dizziness Denies chest pain, palpitations Denies cough or shortness of breath Denies abdominal pain, nausea or vomiting.Diarrhea back? 4 bm since last night as per patient. - Constitutional Vitals: Vital Signs Temp Pulse Resp BP Pulse Ox 97.7 F 88 18 135/64 98 11/12/17 08:00 11/12/17 04:00 11/12/17 08:00 11/12/17 08:00 11/12/17 08:00 Period Temp Pulse Resp BP Sys/Laws Pulse Ox Last 24 Hr 97.7 F-98.8 F 43-133 11-11 106-150/59-81 92-98 Intake and Output 11/11/17 11/12/17 11/12/17 21:59 05:59 13:59 Intake Total 1000 / 1000 Balance 1000 / 1000 Weight 151 lb 145 lb 8 oz Intake & Output: Intake & Output 11/11/17 11/12/17 11/12/17 21:59 05:59 13:59 Intake Total 1000 / 1000 Balance 1000 / 1000 Weight 151 lb 145 lb 8 oz Intake: IV 1000 / 1000 Lactated Ringers 1,000 ml @ 1000 / 1000 Wide Open IV .Q0M ONE Rx#: [id number] Other: # Voids 2 Exam: Constitutional; Afebrile, cooperative, alert, not in distress. Eyes- No icterus, , No periorbital swelling Ears- Ext ear normal, hearing normal to conversation. Neck- Midline trachea, supple Respiratory system: Air Entry equal on both sides, No crackles or wheezing, no rhonchi. CVS- Rate rhythm regular, S1,S2 heard, no gallop, no rub. Abdomen- Soft nontender abdomen, no organomegaly, no tenderness, no guarding or rigidity, [employer]- AOOx3, moving all extremities, no gross focal deficit noted. Medical - PN: Obj Da - Labs CBC & Chem 7: 11/12/17 03:35 11/12/17 07:37 Labs: Abnormal Lab Results 11/12/17 11/12/17 11/12/17 07:37 03:35 03:35 Hgb 11.7 L Hct 34.9 L Plt Count 466 H Lymph % (Auto) [place] % (Auto) Eos % (Auto) 9.5 H Lymph # (Auto) [place] # (Auto) 1.0 H Eos # (Auto) 0.8 H D-Dimer Sodium 130 L 128 L Potassium 3.2 L 3.1 L Chloride 88 L 86 L Anion Gap BUN 6 L 7 L Glucose 131 H 116 H Osmolality Phosphorus 1.7 L Magnesium GGT 37 H NT-Pro-B Natriuret Pep Ur Leukocyte Esterase Urine WBC 11/12/17 11/11/17 11/11/17 00:30 22:42 21:11 Hgb Hct Plt Count Lymph % (Auto) [place] % (Auto) Eos % (Auto) Lymph # (Auto) [place] # (Auto) Eos # (Auto) D-Dimer Sodium 129 L Potassium Chloride 86 L Anion Gap 18.0 H BUN 7 L Glucose 138 H Osmolality 264 L Phosphorus Magnesium 1.1 L GGT NT-Pro-B Natriuret Pep Ur Leukocyte Esterase 75 A Urine WBC 13 H 11/11/17 11/11/17 11/11/17 21:11 21:11 21:11 Hgb 11.2 L Hct 33.5 L Plt Count 499 H Lymph % (Auto) 13.7 L [place] % (Auto) 15.2 H Eos % (Auto) Lymph # (Auto) 1.2 L [place] # (Auto) 1.4 H Eos # (Auto) D-Dimer 0.68 H Sodium 123 L Potassium 2.5 L* Chloride 80 L Anion Gap 18.0 H BUN Glucose 125 H Osmolality Phosphorus Magnesium GGT NT-Pro-B Natriuret Pep 734.0 H Ur Leukocyte Esterase Urine WBC Meds: Medications Acetaminophen (Tylenol) 650 mg PO Q6HP PRN PRN Reason: PAIN/FEVER > 101 Last Admin: 11/12/17 07:55 Dose: 650 mg Hydrocodone Bitart/Acetaminophen ([place] 5/325mg) 1 tab PO Q4HP PRN PRN Reason: PAIN LEVEL 3-6 Albuterol/Ipratropium (Duoneb) 3 ml NEB Q6HRT [facility]A Last Admin: 11/12/17 07:51 Dose: Not Given Atorvastatin Calcium (Lipitor) 20 mg PO HS [place]A Dextrose (Dextrose 50%) 0 ml IV UD PRN PRN Reason: Hypoglycemia Diagnostic Test (Pha) (Accu-Chek) 1 each FS ACHS [facility] Last Admin: 11/12/17 07:50 Dose: 1 each Glucose (Insta-Glucose) 15 gm PO PRN PRN PRN Reason: Hypoglycemia Heparin Sodium (Porcine) (Heparin) 5,000 unit SQ Q12 [facility] Last Admin: 11/12/17 07:55 Dose: 5,000 unit Dextrose/Sodium Chloride (Dextrose 5%-1/2ns Iv Solution) 1,000 mls @ 40 mls/hr IV .Q24H [facility] Last Admin: 11/12/17 02:07 Dose: 40 mls/hr Insulin Human Lispro (Humalog) 0 unit SQ ACHS [facility] PRN Reason: Protocol Last Admin: 11/12/17 07:51 Dose: Not Given Magnesium Oxide (Magnesium Oxide) 400 mg PO DAILY [facility] Last Admin: 11/12/17 07:56 Dose: 400 mg Montelukast Sodium (Singular) 10 mg PO QDAY [facility] Last Admin: 11/12/17 07:56 Dose: 10 mg Naloxone HCl (Narcan) 0.1 mg IV Q2MIN PRN PRN Reason: Opiate Reversal Omeprazole (Prilosec) 20 mg PO ACB [facility] Last Admin: 11/12/17 07:47 Dose: 20 mg Ondansetron HCl (Zofran) 4 mg IV Q4HP PRN PRN Reason: Nausea And Vomiting Budesonide/Formoterol Fumarate [Symbicort] 160-4.5 Mcg Inhaler 2 dose INH BID [facility] Last Admin: 11/12/17 09:01 Dose: 2 dose Potassium/Phosphorus/Sodium (Neutra Phos) 1 packet PO BID [facility] Last Admin: 11/12/17 07:56 Dose: 1 packet Medical - PN: A/P - Time Spent With Patient Total time spent is greater than 50% in coordination of care (as documented) at patient's floor/unit and/or counseling patient: - Narrative A/P Narrative: A/P Hypovolumic Hyponatremia Chronic: IV fluids ongoing, aim for 10-12meq in 24 hrs , check bmp 4-6 hrs, adjust fluids as needed. Diarrhea: had resolved, but now again has returned this AM, workup neg so far includign cdif and stool cultures, GET CT Abdomen and pelvis, conside GI consult if persits for colonoscopy. Acute hypokalemia: due to diarrhea, IV replacement. Hypomagnesemia: Mg is better today, but anticipate low numbers again, will replace as needed. Hypophosphatemia: Replace HTN, bp stable, resume meds. DM sliding scale insulin, hold metformin. UTI: UA is abnl, she has had pseudomonas in the past, will await cultures, start on IV cefepime in the interim. COPD, duonebs q6sch, no wheezing on exam, resume home meds / symbicort dVT hep sq Diet carb consistent Full code Medical - PN: Qual - Stroke Symptom Onset Unknown: No - VTE Deep Vein Thrombosis/Pulmonary Embolism Present on Admission: No
[2017-11-12] MEDS: CEFEPIME 1 GM VIAL IV SCH ×2 (12:38→21:57)
[2017-11-12 13:46] LABS: Blood Urea Nitrogen 7 mg/dl (8-23)
[2017-11-12] MEDS ORDERED: IOPAMIDOL 100 ML BOTTLE IV ONE (13:56)
--- NOTE | 2017-11-12 14:01 | Cat Scan Report ---
CLINICAL INFORMATION: Abdominal pain COMPARISON: 05/07/[address] TECHNIQUE: Following enteric contrast, 80 cc of Isovue-300 were injected intravenously, and 60 seconds later, 0.625 mm helical slices were obtained from the mid heart through the subtrochanteric regions. Following reconstruction, 2.5 mm sagittal, coronal and axial reformatted images were processed and reviewed at bone, lung and soft tissue windows. Five minutes later, 0.625 mm helical slices were obtained from the mid heart through the kidneys and viewed at soft tissue windows.The exam was performed using radiation dose optimization techniques including, but not limited to, automated exposure control, adjustment of the mA and/or kV according to patient size and use of iterative reconstruction technique. FINDINGS: Hiatal hernia and increased in size and now moderately enlarged. Lung bases show moderate emphysema changes with mild interstitial fibrosis progressing from 2013. There are no effusions. The visualized heart is borderline enlarged and there is scattered calcific plaque seen in the visualized coronary arteries. Images through the abdomen show mild fatty change within the liver, but no focal lesion. The gallbladder is surgically absent. Small amounts of air seen within the common hepatic duct - as previously noted. This may be related to prior papillotomy. Ducts are normal caliber CBD is only 5 mm. The pancreas, both kidneys, adrenal glands, spleen and aorta including aortic branches are normal in size configuration and attenuation without focal lesion. There is no free air, free fluid and no adenopathy. There are multiple sigmoid diverticuli, but no evidence of diverticulitis. The remainder of the colon, small bowel and stomach are grossly normal. Images through the pelvis show urinary bladder is normal in size and configuration. Normal-appearing postmenopausal uterus spans 5 x 3 cm. Bone windows show only moderate L4-5 degenerative disc disease no focal osseous lesions IMPRESSION: 1. Sigmoid diverticulosis - no evidence of diverticulitis. 2. Moderate size hiatal hernia - increased from 2013 3. Moderate centrilobular emphysema changes with interstitial fibrosis in the visualized lower lobes - progressing 2013. Interpreted and Authenticated by: Rafat Morales 11/12/17
[2017-11-12] MEDS ORDERED: DEXTROSE 5%-LR W/20MEQ KCL 1,000 ML IV SCH (14:30)
[2017-11-12] MEDS: DEXTROSE 5%-LR W/20MEQ KCL 1,000 ML IV SCH (14:59)
[2017-11-12] MEDS ORDERED: POTASSIUM CHLORIDE 20 MEQ PACKET PO ONE (16:03)
[2017-11-12 17:11] LABS: Blood Urea Nitrogen 6 mg/dl (8-23)
[2017-11-12] MEDS ORDERED: LOPERAMIDE 2 MG CAPSULE PO PRN (18:15)
[2017-11-12 20:33] LABS: Blood Urea Nitrogen 7 mg/dl (8-23)
[2017-11-12] MEDS ORDERED: LOPERAMIDE 2 MG CAPSULE PO ONE (20:36)
--- NOTE | 2017-11-12 20:55 | XRay Report ---
CLINICAL INFORMATION: Shortness of breath COMPARISON: 11/11/2017 FINDINGS: The mediastinal silhouette and pulmonary vessels are normal. Elevated lung volumes and mild interstitial disease suggests chronic bronchitis/chronic smoking history. No effusions IMPRESSION: Chronic bronchitis no acute disease Interpreted and Authenticated by: Rafat Morales 11/12/17
[2017-11-12] MEDS ORDERED: ATORVASTATIN 20 MG TABLET PO SCH (21:00)
[2017-11-13] MEDS: IPRATROPIUM/ALBUTEROL 3 ML AMPUL.NEB NEB SCH ×4 (01:23→19:00)
[2017-11-13] MEDS: DEXTROSE 5%-LR W/20MEQ KCL 1,000 ML IV SCH (03:59)
[2017-11-13] MEDS: CEFEPIME 1 GM VIAL IV SCH ×3 (05:37→21:37)
[2017-11-13 06:05] LABS: Basophils # (Auto) 0 K/mcL (0.0-0.3); Basophils % (Auto) 0.5 % (0.0-2.0); Eosinophils # (Auto) 0.7 K/mcL (0.0-0.7); Eosinophils % (Auto) 9.6 % (0.0-7.0); Granulocytes % (Auto) 57.6 % (38.0-78.0); Lymphocytes # (Auto) 1.6 K/mcL (1.5-4.8); Lymphocytes % (Auto) 21.2 % (15.5-49.0); Mean Cell Volume 85.4 fL (80.0-100.0); Mean Corpuscular HGB Conc 33.7 g/dL (31.0-36.0); Mean Corpuscular Hemoglobin 28.8 pg (26.0-34.0); Monocytes # (Auto) 0.8 K/mcL (0.1-0.9); Monocytes % (Auto) 11.1 % (1.0-12.0); Platelet Count 428 K/mcL (140-440); RBC 3.73 M/mcL (4.00-5.20)
[2017-11-13 06:07] LABS: ALT/SGPT 9 U/l (0-40); Albumin 3.5 gm/dL (3.2-5.2); Albumin/Globulin Ratio 1.2 (1.0-2.3); Alkaline Phosphatase 76 U/L (39-117); Bilirubin,Direct < 0.2 mg/dL (0.0-0.3); Blood Urea Nitrogen 7 mg/dl (8-23); Gamma Glutamyl Transpeptidase 36 U/L (5-36); Magnesium 1.5 mg/dL (1.6-2.5); Uric Acid 5.1 mg/dL (2.5-8.0)
[2017-11-13] MEDS ORDERED: MAGNESIUM SULFATE 2 GM/50 ML BAG IV ONE (06:48)
[2017-11-13] MEDS ORDERED: POTASSIUM CHLORIDE 20 MEQ PACKET PO ONE (06:49)
[2017-11-13] MEDS ORDERED: NACL 0.9% W/KCL 20MEQ 1,000 ML IV SCH (07:00)
[2017-11-13] MEDS: OMEPRAZOLE 20 MG CAPSULE PO SCH (07:13)
[2017-11-13] MEDS: MAGNESIUM OXIDE 400 MG TABLET PO SCH (07:44)
[2017-11-13] MEDS: MONTELUKAST 10 MG TABLET PO SCH (07:44)
[2017-11-13] MEDS: ACETAMINOPHEN 325 MG TABLET PO PRN (07:44)
[2017-11-13] MEDS: HEPARIN 5,000 UNIT/ML VIAL SQ SCH ×2 (07:45→20:41)
[2017-11-13] MEDS: INSULIN LISPRO 1 UNIT/0.01 ML UNIT SQ SCH ×4 (07:45→20:41)
[2017-11-13] MEDS: NEUTRA PHOS 1 PACKET PO SCH ×2 (07:45→20:42)
[2017-11-13] MEDS ORDERED: PEG 3350/NA SULF,BICARB,CL/KCL 4,000 ML ORAL.SOL PO ONE (09:45)
[2017-11-13] MEDS ORDERED: PEG 3350/NA SULF,BICARB,CL/KCL 4,000 ML ORAL.SOL ONE (10:06)
[2017-11-13] MEDS: Budesonide/Formoterol Fumarate [Symbicort] 160-4.5 mcg Inhaler INH SCH ×2 (10:10→20:42)
--- NOTE | 2017-11-13 10:34 | Internal Med Progress Note ---
Medical - PN: Subj Patient information: Note initiated : 11/13/17 at 10:30 am Service Date, if different from initiated Date: [] Patient: Marlena Muñoz a 77 y/o F admitted on 11/11/17 for trouble taking good deep breathe. Chief Complaint: [] Interval history: Ms. Muñoz is a 77 year old Female, presents to the hospital with dairrhea going on for over a week, the patient notes she has been having watery diarrhea x 7-8 days, the patient diarrhea is watery, some mucous secretions, no blood, she has had very poor appetite during this episode. She note she has lost around 9 lbs during this time. The patient had been recently seen by her PCP and workup was initiated, labs ordered. Stool studies have been eng, including cdiff, pt did have hyponatera Na 128, and K of 2.8, PCP/ solution architect provider advised to start taking potassium supplements which she had been taking. The patient reports that over 1 day her diarrhea has now resolved. But she is still feeling very weak and tired, she is not able to ambulate well without being short of breath and feeling palpitations, her mouth is parched and she has not regained her appetitie back up again. She also reports left upper quadrant, epigastric pain burning type over last day or two. The patient therefore presented to the ER for further management. In the ER her labs showed normal wbc, hb low, drop of 2 gms since last check 2 days ago, her Na had dropped to 123, K was 2.5, Cl 80, Patient EKG showed signifciant PAC, She was clinically dehydrated, She was therefore presented for admission. FOB done in the ER is negative for occult blood The patient denies any fever, no headaches, some dizziness, no difficulty in swallowing, no hearing issues, shortness of breath/ fatigue on ambulation, no chest pain, no abdominal pain, but does have soreness, she has some nausea, no vomiting, diarrhea is now resolved, no joint swelling, skin rashes, no depression or anxiety. The patients recent lab work shows normal tsh. Nov 12 Patient seen examined, no acute overnight issues, patient feeling better this AM , Her NA is 130, she feels better. Goal correction would be 10-12meq in 24 hrs, I would try to keep her in this range today, on d5. 0.45 ns, she repoted recurrence of loose stools today will get CT Abdomen and pelvis with oral and IV contrast. conside GI eval if this persists for colonoscopy. Nov 13 Pt seen examined, still has diarrhea, had loperamide Na, K better, still has poor appetitie CT scan did not help much, did show diverticulosis, Discussed iwth patient, need for GI eval, she is agreeable to same, Will consult GI Plan for colonoscopy later today or tomorrow AM . Pertinent ROS: Denies headache, dizziness Denies chest pain, palpitations sob on activity present. Denies abdominal pain, nausea or vomiting, diarrhea present, . - Constitutional Vitals: Vital Signs Temp Pulse Resp BP Pulse Ox 98.9 F 88 14 156/80 94 11/13/17 08:29 11/13/17 08:00 11/13/17 08:00 11/13/17 08:00 11/13/17 08:00 Period Temp Pulse Resp BP Sys/Laws Pulse Ox Last 24 Hr 98.3 F-100.8 F 86-110 14-20 120-156/55-87 92-96 Intake and Output 11/12/17 11/13/17 11/13/17 21:59 05:59 13:59 Intake Total 600 / 600 1575 / 1575 2064 Balance 600 / 600 1575 / 1575 2064 Weight 144 lb 8 oz Intake & Output: Intake & Output 11/12/17 11/13/17 11/13/17 21:59 05:59 13:59 Intake Total 600 / 600 1575 / 1575 2064 Balance 600 / 600 1575 / 1575 20645 Weight 144 lb 8 oz Intake: IV 975 / 975 1465 / 1465 Dextrose 5%-Lr W/20Meq KCl 1, 975 / 975 000 ml @ 75 mls/hr IV .[id number] [facility] Rx#:[id number] Oral 600 / 600 600 / 600 600 / 600 Other: Meal Dinner Breakfast Percent of Meal Consumed 100% 50% # Voids 1 3 # Bowel Movements 1 Exam: Constitutional; Afebrile, cooperative, alert, not in distress. Eyes- No icterus, , No periorbital swelling Ears- Ext ear normal, hearing normal to conversation. Neck- Midline trachea, supple Respiratory system: Air Entry equal on both sides, No crackles or wheezing, no rhonchi. CVS- Rate rhythm regular, S1,S2 heard, no gallop, no rub. Abdomen- Soft abdomen, does admit to some sorness no organomegaly, no tenderness, no guarding or rigidity, [employer]- AOOx3, moving all extremities, no gross focal deficit noted. Medical - PN: Obj Da - Labs CBC & Chem 7: 11/13/17 03:37 11/13/17 03:37 Labs: Abnormal Lab Results 11/13/17 11/13/17 11/12/17 03:37 03:37 19:28 RBC 3.73 L Hgb 10.7 L Hct 31.9 L Plt Count Lymph % (Auto) [place] % (Auto) Eos % (Auto) 9.6 H Lymph # (Auto) [place] # (Auto) Eos # (Auto) D-Dimer Sodium 132 L 129 L Potassium Chloride 92 L 88 L Anion Gap BUN 7 L 7 L Glucose 140 H 167 H Osmolality Phosphorus Magnesium 1.5 L GGT NT-Pro-B Natriuret Pep Ur Leukocyte Esterase Urine WBC 11/12/17 11/12/17 11/12/17 16:30 12: 07:37 RBC Hgb Hct Plt Count Lymph % (Auto) [place] % (Auto) Eos % (Auto) Lymph # (Auto) [place] # (Auto) Eos # (Auto) D-Dimer Sodium 126 L 124 L 130 L Potassium 3.0 L 3.2 L Chloride 85 L 83 L 88 L Anion Gap 17.0 H 19.0 H BUN 6 L 7 L 6 L Glucose 199 H 123 H 131 H Osmolality Phosphorus Magnesium GGT NT-Pro-B Natriuret Pep Ur Leukocyte Esterase Urine WBC 11/12/17 11/12/17 11/12/17 03:35 03:35 00:30 RBC Hgb 11.7 L Hct 34.9 L Plt Count 466 H Lymph % (Auto) [place] % (Auto) Eos % (Auto) 9.5 H Lymph # (Auto) [place] # (Auto) 1.0 H Eos # (Auto) 0.8 H D-Dimer Sodium 128 L 129 L Potassium 3.1 L Chloride 86 L 86 L Anion Gap 18.0 H BUN 7 L 7 L Glucose 116 H 138 H Osmolality Phosphorus 1.7 L Magnesium GGT 37 H NT-Pro-B Natriuret Pep Ur Leukocyte Esterase Urine WBC 11/11/17 11/11/17 11/11/17 22:42 21:11 21:11 RBC Hgb Hct Plt Count Lymph % (Auto) [place] % (Auto) Eos % (Auto) Lymph # (Auto) [place] # (Auto) Eos # (Auto) D-Dimer Sodium 123 L Potassium 2.5 L* Chloride 80 L Anion Gap 18.0 H BUN Glucose 125 H Osmolality 264 L Phosphorus Magnesium 1.1 L GGT NT-Pro-B Natriuret Pep 734.0 H Ur Leukocyte Esterase 75 A Urine WBC 13 H 11/11/17 11/11/17 21:11 21:11 RBC Hgb 11.2 L Hct 33.5 L Plt Count 499 H Lymph % (Auto) 13.7 L [place] % (Auto) 15.2 H Eos % (Auto) Lymph # (Auto) 1.2 L [place] # (Auto) 1.4 H Eos # (Auto) D-Dimer 0.68 H Sodium Potassium Chloride Anion Gap BUN Glucose Osmolality Phosphorus Magnesium GGT NT-Pro-B Natriuret Pep Ur Leukocyte Esterase Urine WBC Meds: Medications Acetaminophen (Tylenol) 650 mg PO Q6HP PRN PRN Reason: PAIN/FEVER > 101 Last Admin: 11/13/17 07:44 Dose: 650 mg Hydrocodone Bitart/Acetaminophen ([place] 5/325mg) 1 tab PO Q4HP PRN PRN Reason: PAIN LEVEL 3-6 Last Admin: 11/12/17 21:57 Dose: 1 tab Albuterol/Ipratropium (Duoneb) 3 ml NEB Q6HRT [facility] Last Admin: 11/13/17 08:28 Dose: Not Given Atorvastatin Calcium (Lipitor) 20 mg PO HS [facility] Last Admin: 11/12/17 21:26 Dose: 20 mg Cefepime HCl (Maxipime) 1 gm IV Q8H [facility] Last Admin: 11/13/17 05:37 Dose: 1 gm Dextrose (Dextrose 50%) 0 ml IV UD PRN PRN Reason: Hypoglycemia Diagnostic Test (Pha) (Accu-Chek) 1 each FS ACHS [facility] Last Admin: 11/13/17 07:17 Dose: 1 each Glucose (Insta-Glucose) 15 gm PO PRN PRN PRN Reason: Hypoglycemia Heparin Sodium (Porcine) (Heparin) 5,000 unit SQ Q12 [facility] Last Admin: 11/13/17 07:45 Dose: 5,000 unit Potassium Chloride/Sodium Chloride (Nacl 0.9% W/Kcl 20meq 1000ml) 1,000 mls @ 75 mls/hr IV .[id number] [facility] Last Admin: 11/13/17 07:13 Dose: 75 mls/hr Insulin Human Lispro (Humalog) 0 unit SQ ACHS [facility] PRN Reason: Protocol Last Admin: 11/13/17 07:45 Dose: 1 unit Loperamide HCl (Imodium) 2 mg PO PRN PRN PRN Reason: Diarrhea Magnesium Oxide (Magnesium Oxide) 400 mg PO DAILY [facility] Last Admin: 11/13/17 07:44 Dose: 400 mg Montelukast Sodium (Singular) 10 mg PO QDAY [facility] Last Admin: 11/13/17 07:44 Dose: 10 mg Naloxone HCl (Narcan) 0.1 mg IV Q2MIN PRN PRN Reason: Opiate Reversal Omeprazole (Prilosec) 20 mg PO ACB [facility] Last Admin: 11/13/17 07:13 Dose: 20 mg Ondansetron HCl (Zofran) 4 mg IV Q4HP PRN PRN Reason: Nausea And Vomiting Budesonide/Formoterol Fumarate [Symbicort] 160-4.5 Mcg Inhaler 2 dose INH BID [facility] Last Admin: 11/13/17 10:10 Dose: 2 dose Potassium/Phosphorus/Sodium (Neutra Phos) 1 packet PO BID [facility] Last Admin: 11/13/17 07:45 Dose: 1 packet Medical - PN: A/P - Time Spent With Patient Total time spent is greater than 50% in coordination of care (as documented) at patient's floor/unit and/or counseling patient: - Narrative A/P Narrative: A/P Hypovolumic Hyponatremia Chronic: on Saline now, Na > 130, reassess in PM, continue gentle hydration as she still has ongoing Diarrhea. Diarrhea: still ongoing, on prn loperamide, plan to stop loperamide, GI consulted, Colonoscopy planned, microscopic colitis? await GI eval. Acute hypokalemia: due to diarrhea, IV replacement. K stable today Hypomagnesemia: Mg is low again, replace IV, Hypophosphatemia: Replace HTN, bp stable, DM sliding scale insulin, hold metformin. UTI: UA is abnl, she has had pseudomonas in the past, again shows pseudomonas species, on cefepime, can switch to cipro as outpatient, should the sensitivities remain unchanged. COPD, duonebs q6sch, no wheezing on exam, resume home meds / symbicort dVT hep sq Diet carb consistent (npo for colonoscopy now)_ Full code Medical - PN: Qual - Stroke Symptom Onset Unknown: No - VTE Deep Vein Thrombosis/Pulmonary Embolism Present on Admission: No
[2017-11-13] MEDS ORDERED: DEXTROSE 50% 50 ML VIAL IV PRN (10:47)
[2017-11-13] MEDS ORDERED: DEXTROSE 31 GM ORAL.SUSP PO PRN (10:47)
[2017-11-13] MEDS ORDERED: ACETAMINOPHEN 325 MG TABLET PO PRN (10:47)
[2017-11-13] MEDS ORDERED: ONDANSETRON 4 MG/2 ML VIAL IV PRN (10:47)
[2017-11-13] MEDS ORDERED: NALOXONE HCL 0.4 MG/ML VIAL IV PRN (10:47)
[2017-11-13] MEDS: NACL 0.9% W/KCL 20MEQ 1,000 ML IV SCH ×2 (10:55→21:43)
[2017-11-13] MEDS ORDERED: MIDAZOLAM 2 MG/2 ML VIAL IV SCH (15:30)
[2017-11-13] MEDS ORDERED: PROPOFOL 200 MG/20 ML VIAL IV SCH (15:30)
[2017-11-13] MEDS ORDERED: MIDAZOLAM 2 MG/2 ML VIAL ONE (15:46)
[2017-11-13] MEDS ORDERED: PROPOFOL 20 ML IV ONE (15:46)
[2017-11-13] MEDS: HYDROcodone/APAP 5/325MG TABLET PO PRN ×2 (17:17→21:37)
[2017-11-13] MEDS ORDERED: SIMETHICONE 80 MG TAB.CHEW CHEWED ONE (17:20)
[2017-11-13] MEDS ORDERED: ATORVASTATIN 20 MG TABLET PO SCH (21:00)
[2017-11-14] MEDS: IPRATROPIUM/ALBUTEROL 3 ML AMPUL.NEB NEB SCH ×2 (01:21→08:27)
[2017-11-14] MEDS: NACL 0.9% W/KCL 20MEQ 1,000 ML IV SCH (01:22)
[2017-11-14 04:58] LABS: Basophils # (Auto) 0 K/mcL (0.0-0.3); Basophils % (Auto) 0.2 % (0.0-2.0); Eosinophils # (Auto) 0.7 K/mcL (0.0-0.7); Eosinophils % (Auto) 9.5 % (0.0-7.0); Granulocytes % (Auto) 59.9 % (38.0-78.0); Lymphocytes # (Auto) 1.4 K/mcL (1.5-4.8); Lymphocytes % (Auto) 19.3 % (15.5-49.0); Mean Cell Volume 85.1 fL (80.0-100.0); Mean Corpuscular HGB Conc 33.6 g/dL (31.0-36.0); Mean Corpuscular Hemoglobin 28.6 pg (26.0-34.0); Monocytes # (Auto) 0.8 K/mcL (0.1-0.9); Monocytes % (Auto) 11.1 % (1.0-12.0); Platelet Count 412 K/mcL (140-440); RBC 3.46 M/mcL (4.00-5.20); Red Cell Distribution Width 14.1 % (11.5-14.5)
[2017-11-14 05:26] LABS: ALT/SGPT 18 U/l (0-40); Albumin 3.4 gm/dL (3.2-5.2); Albumin/Globulin Ratio 1.3 (1.0-2.3); Alkaline Phosphatase 65 U/L (39-117); Bilirubin,Direct < 0.2 mg/dL (0.0-0.3); Blood Urea Nitrogen 5 mg/dl (8-23); Gamma Glutamyl Transpeptidase 48 U/L (5-36); Magnesium 1.5 mg/dL (1.6-2.5); Uric Acid 3.4 mg/dL (2.5-8.0)
[2017-11-14] MEDS: CEFEPIME 1 GM VIAL IV SCH (05:37)
[2017-11-14] MEDS: INSULIN LISPRO 1 UNIT/0.01 ML UNIT SQ SCH (07:10)
[2017-11-14] MEDS ORDERED: OMEPRAZOLE 20 MG CAPSULE PO SCH (07:30)
[2017-11-14] MEDS ORDERED: MAGNESIUM SULFATE 32.48 MEQ in DEXTROSE 5% IN WATER 100 ML IV ONE (08:05)
[2017-11-14] MEDS: NEUTRA PHOS 1 PACKET PO SCH (08:28)
[2017-11-14] MEDS: HEPARIN 5,000 UNIT/ML VIAL SQ SCH (08:29)
[2017-11-14] MEDS: Budesonide/Formoterol Fumarate [Symbicort] 160-4.5 mcg Inhaler INH SCH (08:29)
[2017-11-14] MEDS ORDERED: MAGNESIUM OXIDE 400 MG TABLET PO SCH (09:00)
[2017-11-14] MEDS ORDERED: METOPROLOL SUCCINATE 25 MG TAB.XL.24H PO SCH (09:00)
[2017-11-14] MEDS ORDERED: MONTELUKAST 10 MG TABLET PO SCH (09:00)
--- NOTE | 2017-11-14 10:22 | Operative Note ---
DATE OF OPERATION: 11/13/2017 PREPROCEDURE DIAGNOSIS: Two weeks of diarrhea, ? microscopic colitis versus nonspecific inflammatory bowel disease. POSTPROCEDURE DIAGNOSES: Three colon polyps, diverticulosis, hemorrhoids, diarrhea, possibly microscopic colitis. See below. PROCEDURE: Colonoscopy, polypectomy and biopsy. INSTRUMENT USED: Olympus ROB [id number] colonoscope. SPECIMENS OBTAINED: Biopsies from terminal ileum, random biopsies from right colon, left colon and rectum, 2 polyps from descending colon, and 1 polyp from rectum. All of these were sessile in configuration, removed with a snare, cold technique. INDICATIONS FOR PROCEDURE: The patient is a 77-year-old lady whose primary care physician is Dr. Maldonado Casey. I was asked to see the patient by the hospitalist, Dr. Holguin. The patient I believe did have an orthopedic surgery, perhaps a knee surgery about a month ago, plus or minus. In the last 2 weeks she has had some troublesome diarrhea. She may have up to 10 bowel movements a day. However, there has been no gross blood. There has been no alternating constipation and diarrhea. She thought she had some general unwell feeling and maybe a mild fever. She may or may not have had a viral illness. C. diff toxin was per verbal report negative. Culture for enteric pathogens did not show a cause for diarrhea. I believe she had a low sodium, low potassium, low magnesium. She has received some supplements. CAT scan showed no acute changes. There was diverticulosis but no evidence of diverticulitis and no thickening of the colon wall to suggest nonspecific inflammation. The patient denies any change in diet, activity, medications and minimized the possible fever, unwell feeling that she did have about that time the diarrhea started. INFORMED CONSENT: The procedure was reviewed with the patient. The patient had no further questions and accepts the risks and benefits thereof. One of the risks that were discussed included . Additional risks that were also discussed included bleeding, reaction to medication, possible perforation and possible need for surgery. IV MEDICATIONS USED: Versed 2 and propofol 300. FINDINGS: RECTUM: Hemorrhoids were noted. There was a 5 to 6 mm sessile polyp removed with snare cold technique. Biopsies were taken for microscopic colitis. SIGMOID/DESCENDING COLON: Multiple diverticula were noted. In the descending colon, there were 2 polyps around 4 to 6 mm in size, sessile in configuration. These were removed with a snare cold technique. Biopsies were taken. SPLENIC FLEXURE/TRANSVERSE COLON/HEPATIC FLEXURE: Normal. Biopsies were taken. ASCENDING COLON: Normal. Biopsies were taken. CECUM: This appeared normal. Cecum was identified by the ileocecal valve and the appendiceal dimple. All of this appeared normal. Biopsies were taken from right colon, left colon, and rectum. TERMINAL ILEUM: This was inspected for a few centimeters and was found to be normal. A few biopsies were also taken from the terminal ileum. RECOMMENDATIONS: I have no objections if the patient resumes previous diet and orders. I would suggest that at first the diet should be lactose-free, no artificial sweeteners and probably low in FODMAP. Pathology report will be awaited. If there is evidence of microscopic colitis, appropriate treatment will be recommended, probably budesonide. If there is no evidence of microscopic colitis or other pathology to explain the diarrhea, I would suggest we will recheck the stool for C. diff toxin. She may or may not have had a viral gastroenteritis. Usually, however, such a viral illness does not last this long -it is usually only a matter of hours to a few days. Regarding the colon polyps I anticipate I will recommend a repeat colonoscopy in 5 years. This may change after we review the pathology report. If repeat evaluation of C. diff is negative and the patient does not have microscopic colitis we may need to consider malabsorptive entities that came on acutely. It is rare but celiac disease can come on later in life with often some triggering event which may or may not be identified. Hopefully, the patient has microscopic colitis and appropriate treatment will give her significant improvement. SEDATION TIME: Please refer to the preprocedure nurses' notes, procedure flowsheet, procedure record, and post-procedure assessment for details of the sedation including the pre-, intra-, and post-service work. CRD:kh Job ID: [id number] Doc ID: [id number] Joo Casey MD
--- NOTE | 2017-11-14 11:59 | Discharge Summary ---
Medical - DS: Prov Patient information: Note initiated : 11/14/17 at 11:51 am Service Date, if different from initiated Date: [] Patient: Marlena Muñoz 77 y/o F admitted on 11/11/17 for trouble taking good deep breathe. Chief Complaint: [] Date of admission: 11/11/17 23:11 Discharge date: 11/14/17 Primary care physician: Maldonado Casey Admitting clinician: Timo Holguin Consults: 11/11/17 22:38 Consult to Physician [CONS] Stat Comment: Consulting Provider: Timo Holguin Reason For Exam: Physician to Consult 11/13/17 09:21 Consult to Physician [CONS] Routine Comment: diarrhea Consulting Provider: Joo Zepeda Reason For Exam: Physician to Consult Discharging clinician: Timo Holguin Medical - DS: Meds - Discharge Medications Prescriptions: Ciprofloxacin [Cipro] 500 mg PO BID #20 tab Lisinopril [Zestril] 10 mg PO DAILY #30 tab Active and Home Medications: Home Medications omega-3 fatty acids 1,000 mg capsule 1,000 mg PO DAILY cap 05/01/15 [History Confirmed 11/11/17 Last Taken 05/18/17] biotin 5 mg capsule 5 mg PO QDAY 09/13/16 [History Confirmed 11/11/17 Last Taken 05/18/17] fexofenadine 180 mg tablet 180 mg PO QDAY 09/13/16 [History Confirmed 11/11/17 Last Taken 05/18/17] Omeprazole [Prilosec] 20 mg PO ACB 05/17/17 [History Confirmed 11/11/17 Last Taken 05/18/17] Ubidecarenone [Coq-10] 30 mg PO DAILY 05/17/17 [History Confirmed 11/11/17 Last Taken 05/18/17] amlodipine 10 mg tablet 10 mg PO QDAY 90 Days #90 tab 07/18/17 [Rx Confirmed Last Taken Unknown] budesonide-formoterol HFA 160 mcg-4.5 mcg/actuation aerosol inhaler 2 inh INHALATION BID 90 Days #30.6 g 07/18/17 [Rx Confirmed 11/11/17 Last Taken Unknown] montelukast 10 mg tablet 10 mg PO QDAY 90 Days #90 tab 07/18/17 [Rx Confirmed Last Taken Unknown] calcium carbonate 400 mg calcium (1,000 mg) chewable tablet 400 mg PO QDAY tab 09/15/17 [History Confirmed 11/11/17 Last Taken Unknown] cholecalciferol (vitamin D3) 2,000 unit capsule 2,000 unit PO QDAY cap [History Confirmed 11/11/17 Last Taken Unknown] magnesium 250 mg tablet 500 mg PO QDAY tab 09/15/17 [History Confirmed Last Taken Unknown] metoprolol tartrate 50 mg tablet 50 mg PO BID #180 tab 09/15/17 [Rx Confirmed Last Taken Unknown] Aspirin [Ecotrin] 325 mg PO BID #60 tab.ec 09/26/17 [Rx Confirmed 11/11/17 Last Taken Unknown] Docusate Sodium [Colace] 100 mg PO BID #60 cap 09/26/17 [Rx Confirmed 11/11/17 Last Taken Unknown] metformin 500 mg tablet 500 mg PO BID #180 tab 09/26/17 [Rx Confirmed 11/11/17 Last Taken Unknown] oxyCODONE/APAP [Percocet 5-325 mg] 1 - 2 tab PO Q4HP PRN #75 tab 09/26/17 [Rx Confirmed 11/11/17 Last Taken Unknown] potassium chloride ER 10 mEq tablet,extended release 10 meq PO BID #30 tab 11/10 [Rx Confirmed 11/11/17 Last Taken Unknown] atorvastatin 20 mg tablet 20 mg PO HS #90 tab 11/14/17 [Rx Last Taken Unknown] hydrochlorothiazide 50 mg tablet 25 mg PO QDAY #45 tab 11/14/17 [Rx Last Taken Unknown] Medical - DS: Hosp Hospital course: Ms. Muñoz is a 77 year old Female, presented to the hospital with diarrhea going on for over a week, the patient notes she has been having watery diarrhea x 7-8 days, the patient diarrhea is watery, some mucous secretions, no blood, she has had very poor appetite during this episode. She note she has lost around 9 lbs during this time. The patient had been recently seen by her PCP and workup was initiated, labs ordered. Stool studies have been eng, including cdiff, pt did have hyponatera Na 128, and K of 2.8, PCP/ vocational nursing instructor provider advised to start taking potassium supplements which she had been taking. The patient reports that over 1 day her diarrhea has now resolved. But she is still feeling very weak and tired, she is not able to ambulate well without being short of breath and feeling palpitations, her mouth is parched and she has not regained her appetite back up again. The patient therefore presented to the ER for further management. In the ER her labs showed normal wbc, hb low, drop of 2 gms since last check 2 days ago, her Na had dropped to 123, K was 2.5, Cl 80, Patient EKG showed signifciant PAC, She was clinically dehydrated, She was therefore presented for admission. FOB done in the ER is negative for occult blood TThe patients recent lab work shows normal tsh. Diarrhea: Etiology unknown patient diarrhea started back up again while in the hospital after hydration. The patient was seen by GI and colonoscopy was done, which was negative, the patient very well may have microscopic colitis, biopsy is pending. For now atleaset we are starting the patient on loperamide, to help with stool output. The patient will follow up with Dr Gray for biopsy results and further management of diarrhea. CT scan of abdomen was neg. Electrolyte losses/ Hyponatremia/Hypokalemia? Hypomagnesemia: The patient had depleted lytes due to diarrhea and poor oral intake, Her Sodium was corrected slowly and at the time of d/c her NA was 134, she was tolerating po well. Her K and Mg was corrected with IV supplements. The patient needs to be on mag supplements orally, which can worsen diarrhea. This has been explained to the patient. She can take mag oxide just once a day for slow replenisment. patient ua was abnl and urine cx was positive for pseudomonmas species, she will be started on ciprofloxacin, while in the hospital she was on cefepime. cipro x 10 more days. HTN: The patient is on HCTZ 50mg, metoprolol 50 bid, and amlodipine 10mg, Given her low sodium and low K, althought due to diarrhea, I think a high dose of hctz may have contributed to this. Will hold this for now, for bp start her on llisinopril 10mg once daily. Hyperglycemia/ Patient is on metformin 500mg bid, which can lead to worsening GI s mptoms seng diarrhea. Hold this for now, till diarrhea resolves and can be resumed once ok by PCP. The rest of the stay in the hospital was uneventful, no other changes made to patients home regime. AT the time of d/c patient was ambulatory, toleraitng po well and did not have much diarrhea. Discharge diagnosis: Hyponatremia, Hypokalemia, Diarrhea. - Time Spent with Patient Total time spent providing and/or coordinating discharge services: Greater than 30 minutes Medical - DS: Exam - Constitutional Vitals: Vital Signs Temp Pulse Pulse Resp BP BP BP 11/14/17 08:00 98.2 F 84 16 128/54 11/14/17 04:00 98.6 F 108 H 16 133/62 11/14/17 00:00 98.2 F 88 18 106/49 11/13/17 20:00 97.8 F 110 H 16 125/60 11/13/17 16:53 125 H 124/64 11/13/17 16:49 132 H 119/66 11/13/17 16:43 122 H 24 H 125/80 11/13/17 16:37 106 H 16 123/62 11/13/17 16:00 98.1 F 120 H 98 H 16 133/70 134/66 11/13/17 12:00 99.3 F H 88 16 140/88 Pulse Ox 11/14/17 08:00 96 11/14/17 04:00 95 11/14/17 00:00 92 11/13/17 20:00 95 11/13/17 16:53 92 11/13/17 16:49 91 11/13/17 16:43 96 11/13/17 16:37 96 11/13/17 16:00 91 11/13/17 12:00 94 Intake and Output 11/13/17 11/14/17 11/14/17 21:59 05:59 13:59 Intake Total 1840 / 1840 300 / 300 Output Total 800 / 800 Balance 1040 / 1040 300 / 300 Intake: IV 1000 / 1000 NaCl 0.9% W/KCl 20Meq 1000ML 1, 1000 / 1000 000 ml @ 75 mls/hr IV .[id number] [facility] Rx#:[id number] Oral 840 / 840 300 / 300 Output: Urine/Stool Mix 800 / 800 Other: Meal Nourishment/Supplement Percent of Meal Consumed 100% # Voids 1 1 # Bowel Movements 1 Weight 145 lb 5 oz Additional comments: Constitutional; Afebrile, cooperative, alert, not in distress. Eyes- No icterus, , No periorbital swelling Ears- Ext ear normal, hearing normal to conversation. Neck- Midline trachea, supple Respiratory system: Air Entry equal on both sides, No crackles or wheezing, no rhonchi. CVS- Rate rhythm regular, S1,S2 heard, no gallop, no rub. Abdomen- Soft nontender abdomen, no organomegaly, no tenderness, no guarding or rigidity, [employer]- AOOx3, moving all extremities, no gross focal deficit noted. Medical - DS: Data Labs on day of discharge: Labs from last 24 hours 11/14/17 11/14/17 03:32 03:32 WBC 7.4 RBC 3.46 L Hgb 9.9 L Hct 29.4 L MCV 85.1 MCH 28.6 MCHC 33.6 RDW 14.1 Plt Count 412 MPV 7.8 Gran % 59.9 Lymph % (Auto) 19.3 Garden % (Auto) 11.1 Eos % (Auto) 9.5 H Baso % (Auto) 0.2 Gran # 4.5 Lymph # (Auto) 1.4 L Garden # (Auto) 0.8 Eos # (Auto) 0.7 Baso # (Auto) 0 Sodium 134 Potassium 4.2 Chloride 97 Carbon Dioxide 24 Anion Gap 13.0 BUN 5 L Creatinine 0.7 GFR Calculation 84 Glucose 106 H Uric Acid 3.4 Calcium 8.9 Phosphorus 3.3 Magnesium 1.5 L Total Bilirubin 0.4 Direct Bilirubin < 0.2 GGT 48 H AST 17 ALT 18 Alkaline Phosphatase 65 Lactate Dehydrogenase 203 Total Protein 6.1 Albumin 3.4 Globulin 2.7 Albumin/Globulin Ratio 1.3 Triglycerides 90 Preliminary micro results at discharge 11/11/17 22:42 Urine Culture - Preliminary Urine - Clean Void Mid-Stream Pseudomonas species Medical - DS: A/P - Patient/Caregiver Discharge Instructions Activity: increase activity as tolerated Diet: Regular Diet Additional Instructions: You presented to the hosptial with severe diarrhea, dehdration and electrolyte loss Please stop the Hydrochlorthiazide 50mg blood pressure medication, as this can cause loss of sodium and potassium. Take lisinopril 10mg once daily instead. Make sure that your PCP checks your electrolytes in 1 week after discharge. You still have some residual UTI, please take ciprofloxacin 500mg Twice daily for 10 days Stop metformin 500mg bid, as it can worsen diarrhea. The cause of diarrhea is still unknow, we are waiting on a results of biospy done during colonoscopy, Please call Dr Urbina office and get further instructions on treatment plan/ follow up Go to the ER if worsening symptoms or any other acute concerns. Follow up with PCP in 1 [address] Follow up with Dr Gray GI in 2 weeks. Call them and see if they want you to come in sooner. - Follow up Plan Follow up with: Maldonado Casey MD [Primary Care Provider] - Disposition: Home, Self-Care Prognosis: Fair Rehab Potential: Fair I certify that the patient requires SNF services: No Overall status at discharge: patient is progressing back to baseline Medical - DS: Qual - VTE Deep Vein Thrombosis/Pulmonary Embolism Present on Admission: No
--- NOTE | 2017-11-15 11:51 | Surgical Pathology Report ---
HISTOLOGY SPECIMEN MICROSCOPIC DIAGNOSIS SPECIMEN A - COLON, RECTAL POLYP, POLYPECTOMY: -- HYPERPLASTIC POLYP. SPECIMEN B - SMALL BOWEL, TERMINAL ILEUM, BIOPSY: -- INTESTINAL MUCOSA WITH PATCHY INTRAMUCOSAL LYMPHOID AGGREGATES AND NO SPECIFIC DIAGNOSTIC CHANGE. -- NO ACTIVE INFLAMMATION OR SIGNIFICANT EPITHELIAL LYMPHOCYTOSIS IDENTIFIED. SPECIMEN C - COLON, RANDOM, BIOPSIES: -- BENIGN MUCOSA WITH NO SPECIFIC DIAGNOSTIC CHANGE. -- NO ACTIVE INFLAMMATION OR SIGNIFICANT EPITHELIAL LYMPHOCYTOSIS IDENTIFIED. SPECIMEN D - COLON, DESCENDING POLYP, POLYPECTOMY: -- PORTIONS OF TUBULAR ADENOMA (2). ACP:all) CLINICAL HISTORY Diarrhea; electrolyte imbalance. PROCEDURAL IMPRESSION Polyps; diverticulosis; hemorrhoids. GROSS DESCRIPTION Specimen A: Received in formalin labeled rectal polyp, is a 0.5 cm wood tissue fragment. Totally submitted - one cassette. Specimen B: Received in formalin labeled terminal ileum biopsy, are three wood tissue fragments 0.4 to 1 cm. Totally submitted - one cassette. Specimen C: Received in formalin labeled random biopsies colon, are multiple wood tissue fragments 0.1 to 0.9 cm. Totally submitted - one cassette. Specimen D: Received in formalin labeled descending colon polyp, are two wood tissue fragments 0.5 and 0.8 cm. Totally submitted - one cassette. (STM:adj) Electronically Signed by: Thang Molina M.D.
== END 2017-11-14 13:35 | disposition home or self-care (01) | DRG 641 ==
LOC: ED 20:23 → ICU 20:23
PROVIDERS: ADMIT Internal Medicine; ATTEND Internal Medicine